=== PATIENT | female | born 1995 | race Hispanic/Latino ===

== ENCOUNTER → 2017-08-27 | Outpatient (REF) | payer OTHER ==
[2017-08-27 15:29] LABS: HEMATOCRIT 38.6 % (36.0-47.0); HEMOGLOBIN 12.5 g/dl (12.0-15.5); MEAN CORPUSCULAR HEMOGLOBIN 26.8 pg (27.0-33.0); MEAN CORPUSCULAR HGB CONC 32.4 g/dl (32.0-36.5); MEAN CORPUSCULAR VOLUME 82.7 fl (80.0-96.0); PLATELET COUNT, AUTOMATED 265 10^3/uL (150-450); RED BLOOD COUNT 4.67 10^6/uL (4.00-5.40); RED CELL DISTRIBUTION WIDTH 13.3 % (11.5-14.5)
[2017-08-27 15:49] LABS: FOLATE 10.9 NG/ML; TOTAL 25(OH) VITAMIN D 14.5 NG/ML (30.0-100.0); VITAMIN B12 LEVEL 420 PG/ML
[2017-08-27 15:54] LABS: ALBUMIN 3.9 GM/DL (3.2-5.2); ALBUMIN/GLOBULIN RATIO 1.08 (1.00-1.93); ALKALINE PHOSPHATASE 91 U/L (45-117); ALT/SGPT 29 U/L (12-78); ANION GAP 6 MEQ/L (8-16); AST/SGOT 18 U/L (7-37); BILIRUBIN,TOTAL 0.4 MG/DL (0.2-1.0); BLOOD UREA NITROGEN 10 MG/DL (7-18); CALCIUM LEVEL 8.9 MG/DL (8.5-10.1); CARBON DIOXIDE LEVEL 28 MEQ/L (21-32); CHLORIDE LEVEL 106 MEQ/L (98-107); CREATININE FOR GFR 0.59 MG/DL (0.55-1.30); FREE T4 1.04 NG/DL (0.76-1.46); GLOMERULAR FILTRATION RATE > 60.0 (>60); GLUCOSE, FASTING 77 MG/DL (70-100); POTASSIUM SERUM 3.8 MEQ/L (3.5-5.1); SODIUM LEVEL 140 MEQ/L (136-145); THYROID STIMULATING HORMONE 0.965 uIU/ML (0.358-3.740); TOTAL PROTEIN 7.5 GM/DL (6.4-8.2)
== END ==
LOC: M SFHCPLAZ 13:58
DX: F32.89 Other specified depressive episodes (principal)
CPT/HCPCS: 82746

== ENCOUNTER 2017-11-12 07:12 | Emergency (ER) | payer OTHER ==
[2017-11-12] MEDS: MORPHINE 4 MG/ML 1ML VIAL/SYRINGE (J2270) IV ×2 (08:51)
[2017-11-12] MEDS: NS 1,000 ML IV ×2 (08:51)
[2017-11-12 08:59] LABS: AMORPHOUS SEDIMENT RFX MODERATE (NEGATIVE); KETONE, URINE AUTO RFX NEGATIVE (NEGATIVE); LEUKOCYTE ESTERASE UR AUTO RFX NEGATIVE (NEGATIVE); MUCUS, URINE RFX SMALL (NEGATIVE); NITRITE, URINE AUTO RFX NEGATIVE (NEGATIVE); RBC, URINE AUTO RFX 2 /HPF (0-3); SPECIFIC GRAVITY UR AUTO RFX 1.018 (1.002-1.035); SQUAM EPITHELIAL CELL UR AURFX 8 /HPF (0-6); WBC, URINE AUTO RFX 0 /HPF (0-3)
[2017-11-12 09:04] LABS: BASO % 0.3 % (0.0-1.0); EOS # 0.1 10^3/uL (0.0-0.50); EOS % 1.2 % (0.0-3.0); HEMATOCRIT 38.1 % (36.0-47.0); HEMOGLOBIN 12.3 g/dl (12.0-15.5); IMMATURE GRANULOCYTE % 0.3 % (0-3.0); LYMPH # 3.1 10^3/uL (1.5-6.5); LYMPH % 40.3 % (24.0-44.0); MEAN CORPUSCULAR HEMOGLOBIN 26.5 pg (27.0-33.0); MEAN CORPUSCULAR HGB CONC 32.3 g/dl (32.0-36.5); MEAN CORPUSCULAR VOLUME 82.1 fl (80.0-96.0); MONO # 0.6 10^3/uL (0.0-0.8); MONO % 7.2 % (0.0-5.0); NEUTROPHILS # 3.9 10^3/uL (1.8-7.7); NEUTROPHILS % 50.7 % (36.0-66.0); PLATELET COUNT, AUTOMATED 233 10^3/uL (150-450); RED BLOOD COUNT 4.64 10^6/uL (4.00-5.40); RED CELL DISTRIBUTION WIDTH 13.2 % (11.5-14.5); WHITE BLOOD COUNT 7.6 10^3/uL (4.0-10.0)
[2017-11-12 09:22] LABS: ALBUMIN 3.7 GM/DL (3.2-5.2); ALBUMIN/GLOBULIN RATIO 0.86 (1.00-1.93); ALKALINE PHOSPHATASE 93 U/L (45-117); ALT/SGPT 37 U/L (12-78); AMYLASE 52 U/L (25-115); ANION GAP 8 MEQ/L (8-16); AST/SGOT 23 U/L (7-37); BILIRUBIN,DIRECT < 0.1 MG/DL (0.0-0.2); BILIRUBIN,TOTAL 0.2 MG/DL (0.2-1.0); BLOOD UREA NITROGEN 11 MG/DL (7-18); CALCIUM LEVEL 9.2 MG/DL (8.5-10.1); CARBON DIOXIDE LEVEL 29 MEQ/L (21-32); CHLORIDE LEVEL 105 MEQ/L (98-107); CREATININE FOR GFR 0.69 MG/DL (0.55-1.30); GLOMERULAR FILTRATION RATE > 60.0 (>60); GLUCOSE, FASTING 99 MG/DL (70-100); LIPASE 155 U/L (73-393); POTASSIUM SERUM 3.9 MEQ/L (3.5-5.1); SODIUM LEVEL 142 MEQ/L (136-145)
== END 2017-11-12 10:12 | disposition home or self-care (01) ==
LOC: M ED 07:12
DX: K80.20 Calculus of gallbladder without cholecystitis without obstruction (principal)
CPT/HCPCS: J2270

== ENCOUNTER 2017-11-29 00:30 | Emergency (ER) | payer OTHER ==
[2017-11-29] MEDS: METHOCARBAMOL 500 MG TAB PO (06:32)
[2017-11-29] MEDS: NORCO, ANEXSIA 5/325MG TABLET (HYDROcodone/ACETAMINOPHEN) PO (06:32)
[2017-11-29] MEDS: IBUPROFEN 800 MG TAB PO (06:32)
== END 2017-11-29 06:37 | disposition home or self-care (01) ==
LOC: M ED 00:30
DX: S39.012A Strain of muscle, fascia and tendon of lower back, initial encounter (principal); X50.0XXA Overexertion from strenuous movement or load, initial encounter; Y92.89 Other specified places as the place of occurrence of the external cause; K21.9 Gastro-esophageal reflux disease without esophagitis; Z79.899 Other long term (current) drug therapy
CPT/HCPCS: 99282

== ENCOUNTER 2017-12-13 10:06 | Day surgery (SDC) | payer OTHER ==
[2017-12-13 10:40] LABS: BEDSIDE GLUCOSE 84 MG/DL (70-105)
[2017-12-13] MEDS: LR 1,000 ML IV (10:44)
[2017-12-13 10:49] LABS: CONTROL LINE UCG INT CTR LINE PRESENT; URINE PREG TEST NEGATIVE (NEGATIVE)
[2017-12-13] MEDS ORDERED: fentaNYL 250 MCG/5 ML INJECTION (J3010) As Ordered (11:20)
[2017-12-13] MEDS ORDERED: MIDAZOLAM INJ 2 MG/2 ML VIAL (J2250) As Ordered (11:21)
[2017-12-13] MEDS ORDERED: ONDANSETRON 4MG/2ML VIAL (J2405) As Ordered (11:22)
[2017-12-13] MEDS ORDERED: ROCURONIUM BROMIDE 50 MG/5 ML VIAL As Ordered (11:22)
[2017-12-13] MEDS ORDERED: PROPOFOL 200 MG/20 ML VIAL As Ordered (11:22)
[2017-12-13] MEDS ORDERED: LIDOCAINE 2% INJ 100 MG/5 ML SDV (FOR ANES.) As Ordered (11:22)
[2017-12-13] MEDS ORDERED: METOCLOPRAMIDE INJ 10MG/2ML VIAL (J2765) As Ordered (11:28)
[2017-12-13] MEDS: AMPICILLIN SOD/SULBACTAM SOD 3 GM in D5W MINI-BAG PLUS 100 ML IV (11:35)
[2017-12-13] MEDS ORDERED: KETOROLAC 60 MG/2 ML VIAL (J1885) As Ordered (12:13)
[2017-12-13] MEDS ORDERED: HYDROmorphone HCL 2 MG/ML 1ML VIAL (J1170) As Ordered (12:13)
[2017-12-13] MEDS ORDERED: NEOSTIGMINE 10 MG/10 ML VIAL (J2710) As Ordered (12:13)
[2017-12-13] MEDS ORDERED: GLYCOPYRROLATE INJ 0.2 MG/ML 2 ML VIAL As Ordered (12:13)
[2017-12-13] MEDS ORDERED: SUGAMMADEX SODIUM 500 MG/5 ML VIAL (BRIDION) As Ordered (12:30)
[2017-12-13] MEDS: BUPIVACAINE HCL 0.25% 30 ML VIAL As Ordered (12:37)
[2017-12-13] MEDS: LIDOCAINE 1% SDV INJ 30 ML VIAL As Ordered (12:37)
[2017-12-13] MEDS ORDERED: PERCOCET 5MG/325MG TAB PO (13:30)
[2017-12-13] MEDS ORDERED: KETOROLAC 30 MG/ML VIAL (J1885) IV (13:30)
[2017-12-13] MEDS ORDERED: fentaNYL 100 MCG/2 ML INJECTION (J3010) IV (13:30)
[2017-12-13] MEDS ORDERED: LR 1,000 ML IV (13:30)
[2017-12-13] MEDS ORDERED: NORCO, ANEXSIA 5/325MG TABLET (HYDROcodone/ACETAMINOPHEN) PO (13:30)
[2017-12-13] MEDS ORDERED: ONDANSETRON 4MG/2ML VIAL (J2405) IV ×2 (13:30)
[2017-12-13] MEDS: NORCO, ANEXSIA 5/325MG TABLET (HYDROcodone/ACETAMINOPHEN) PO (15:09)
== END 2017-12-13 16:15 | disposition home or self-care (01) ==
LOC: M SDC 10:06
DX: K80.18 Calculus of gallbladder with other cholecystitis without obstruction (principal); K21.9 Gastro-esophageal reflux disease without esophagitis; R73.03 Prediabetes; E28.2 Polycystic ovarian syndrome; Z79.899 Other long term (current) drug therapy
CPT/HCPCS: 47562

== ENCOUNTER → 2017-12-20 | Outpatient (REF) | payer OTHER | LOC: M SFHCPLAZ 09:48 | DX: E55.9 Vitamin D deficiency, unspecified (principal) ==

== ENCOUNTER → 2017-12-25 | Outpatient (REF) | payer OTHER ==
[2017-12-25 16:16] LABS: TOTAL 25(OH) VITAMIN D 12.1 NG/ML (30.0-100.0)
== END ==
LOC: M SFHCPLAZ 13:12
DX: E55.9 Vitamin D deficiency, unspecified (principal)

== ENCOUNTER → 2018-07-01 | Outpatient (REF) | payer OTHER ==
[~2018-07-01] MED LIST: HYDR-3713 PO; IBUP80TA PO; METH1TAB40 PO; NORCOTAB PO; OMEP40CA2 PO; ROBA500T PO; ZOFR4TAB14 PO
== END ==
LOC: M SFHCPLAZ 09:19
PROVIDERS: ATTEND Nurse Practitioner Family
DX: E55.9 Vitamin D deficiency, unspecified (principal)
CPT/HCPCS: 36415; 69210; 82306; G0463

== ENCOUNTER → 2018-10-01 | Outpatient (REF) | payer OTHER ==
[~2018-10-01] MED LIST changes: +HYDR-3715 PO; -NORCOTAB PO
[2018-10-01 13:02] LABS: HEMATOCRIT 39.2 % (36.0-47.0); HEMOGLOBIN 12.4 g/dl (12.0-15.5); MEAN CORPUSCULAR HEMOGLOBIN 26.7 pg (27.0-33.0); MEAN CORPUSCULAR HGB CONC 31.6 g/dl (32.0-36.5); MEAN CORPUSCULAR VOLUME 84.5 fl (80.0-96.0); PLATELET COUNT, AUTOMATED 298 10^3/uL (150-450); RED BLOOD COUNT 4.64 10^6/uL (4.00-5.40); WHITE BLOOD COUNT 7.8 10^3/uL (4.0-10.0)
[2018-10-01 13:16] LABS: ALT/SGPT 29 U/L (12-78); BILIRUBIN,TOTAL 0.4 MG/DL (0.2-1.0); BLOOD UREA NITROGEN 8 MG/DL (7-18); CALCIUM LEVEL 9.2 MG/DL (8.5-10.1); CARBON DIOXIDE LEVEL 26 MEQ/L (21-32); CHLORIDE LEVEL 106 MEQ/L (98-107); CREATININE FOR GFR 0.61 MG/DL (0.55-1.30); FERRITIN 12 NG/ML (8-252); GLOMERULAR FILTRATION RATE > 60.0 (>60); GLUCOSE, FASTING 86 MG/DL (70-100); POTASSIUM SERUM 4.2 MEQ/L (3.5-5.1); SODIUM LEVEL 138 MEQ/L (136-145); TOTAL PROTEIN 7.3 GM/DL (6.4-8.2)
[2018-10-01 13:19] LABS: TOTAL 25(OH) VITAMIN D 49.1 NG/ML (30.0-100.0)
[2018-10-01 13:35] LABS: ERYTHROCYTE SEDIMENTATION RATE 25 mm/hr (0-20)
== END ==
LOC: M SFHCPLAZ 10:18
PROVIDERS: ATTEND Nurse Practitioner Family
DX: E55.9 Vitamin D deficiency, unspecified (principal); G43.109 Migraine with aura, not intractable, without status migrainosus
CPT/HCPCS: 36415; 80053; 82306; 82728; 85027; 85652; G0463

== ENCOUNTER 2018-11-01 14:39 | Emergency (ER) | payer OTHER ==
[~2018-11-01] VITALS: Ht 157.5 cm; Wt 64.6 kg
[2018-11-01] MEDS ORDERED: ENDO100S VG (14:51)
[2018-11-01] MEDS ORDERED: PREN29TA4 PO (14:51)
[2018-11-01] MEDS ORDERED: METF500T4 PO (14:51)
[2018-11-01] MEDS ORDERED: PRED5TA PO (14:51)
[2018-11-01 14:59] LABS: BASO % 0.3 % (0.0-1.0); EOS % 0.5 % (0.0-3.0); HEMATOCRIT 37.5 % (36.0-47.0); HEMOGLOBIN 12.2 g/dl (12.0-15.5); LYMPH # 2.5 10^3/uL (1.5-6.5); LYMPH % 33.6 % (24.0-44.0); MEAN CORPUSCULAR HEMOGLOBIN 26.8 pg (27.0-33.0); MEAN CORPUSCULAR HGB CONC 32.5 g/dl (32.0-36.5); MEAN CORPUSCULAR VOLUME 82.2 fl (80.0-96.0); MONO # 0.6 10^3/uL (0.0-0.8); MONO % 7.9 % (0.0-5.0); NEUTROPHILS # 4.3 10^3/uL (1.8-7.7); NEUTROPHILS % 57.4 % (36.0-66.0); PLATELET COUNT, AUTOMATED 273 10^3/uL (150-450); RED BLOOD COUNT 4.56 10^6/uL (4.00-5.40); WHITE BLOOD COUNT 7.6 10^3/uL (4.0-10.0)
[2018-11-01 17:28] VITALS: BP 112/74
[2018-11-01 18:35] LABS: CHLAMYDIA DNA AMPLIFICATION NEGATIVE (NEGATIVE); GC DNA AMPLIFICATION NEGATIVE (NEGATIVE)
--- NOTE | 2018-11-02 07:33 | REP ---
FIRST TRIMESTER ULTRASOUND: HISTORY: Vaginal bleeding. The uterus measures 5.5 cm in transverse x 4.8 cm in AP x 8.4 cm in cephalocaudal dimensions. A gestational sac is present at the endometrial cavity. The gestational sac measures 6 mm corresponding to a gestational age of 5 weeks 2 days. There is no pole. The right ovary measures 3.8 x 2.5 x 2.9 cm. A cyst is present in the right ovary. This may represent a corpus luteal cyst. The cyst measures 2.7 x 2.5 x 1.9 cm. The left ovary measures 2.5 x 1.6 x 2.1 cm. A small amount of free fluid is present in the right adnexa. There is no torsion. IMPRESSION: There is a gestational sac in the endometrial cavity measuring 6 mm corresponding to a gestational age of 5 weeks 2 days. This may represent an early intrauterine or missed . An ectopic cannot be excluded. A repeat examination may be helpful for further evaluation. Electronically Signed by Emiliano Ruiz MD 11/02/2018 08:54 A
== END 2018-11-01 17:29 | disposition home or self-care (01) ==
LOC: M ED 14:39
DX: O34.81 Maternal care for other abnormalities of pelvic organs, first trimester (principal); N83.201 Unspecified ovarian cyst, right side; Z3A.01 Less than 8 weeks gestation of pregnancy; O24.111 Pre-existing type 2 diabetes mellitus, in pregnancy, first trimester; Z87.42 Personal history of other diseases of the female genital tract; Z87.19 Personal history of other diseases of the digestive system; Z86.19 Personal history of other infectious and parasitic diseases; Z79.899 Other long term (current) drug therapy; Z79.52 Long term (current) use of systemic steroids; Z79.84 Long term (current) use of oral hypoglycemic drugs

== ENCOUNTER → 2019-01-19 | Outpatient (REF) | payer OTHER ==
[~2019-01-19] MED LIST changes: +ENDO100S VG; +METF500T4 PO; +PRED5TA PO; +PREN29TA4 PO
[2019-01-19 14:59] LABS: CHLAMYDIA DNA AMPLIFICATION NEGATIVE (NEGATIVE); GC DNA AMPLIFICATION NEGATIVE (NEGATIVE)
== END ==
LOC: M LAB REF 12:43
PROVIDERS: ATTEND Advanced Practice Midwife
DX: Z34.82 Encounter for supervision of other normal pregnancy, second trimester (principal); Z36.89 Encounter for other specified antenatal screening

== ENCOUNTER → 2019-02-13 | Outpatient (CLI) | payer MEDICAID, OTHER, SELFPAY ==
[~2019-02-13] MED LIST changes: +METF-791 PO; -METF500T4 PO
--- NOTE | 2019-02-13 16:06 | REP ---
Obstetric ultrasound for anatomy: There is a single intrauterine gestation in a breech presentation. There is movement and cardiac activity. The heart rate is 147 beats per minute. The placenta is anterior. There is no previa or abruptio. The placenta is grade zero. Subjectively the amniotic fluid volume is normal. The cervix measures 3.6 cm length. Gestational age by today's ultrasound is 19 weeks 6 days/LIANA 07/04/2019. Gestational age by LMP is 20 weeks 4 days/LIANA 06/29/2019. weight is 324 grams/0 pounds, 11 ounces. This is the 26th percentile for 20 weeks 4 days. The following anatomic structures are identified and are unremarkable: Cranium, choroid plexus, cavum septum pellucidum, facial profile, lungs, four-chamber heart, cardiac right and left ventricular outflow tracts, diaphragm, stomach, cord insertion, three-vessel cord, kidneys, bladder and upper lower extremities. Suboptimally demonstrated because of position are the upper lip, cerebellum and spine. A followup study dedicated to these structures might be considered. Electronically Signed by Tenzin Maravilla MD 02/13/2019 03:57 P
== END ==
LOC: M RAD 11:52
PROVIDERS: ATTEND Advanced Practice Midwife
DX: Z34.82 Encounter for supervision of other normal pregnancy, second trimester (principal)

== ENCOUNTER → 2019-03-13 | Outpatient (CLI) | payer MEDICAID, SELFPAY ==
[~2019-03-13] MED LIST changes: -OMEP40CA2 PO; +OMEP40CA97 PO
--- NOTE | 2019-03-13 09:42 | REP ---
OBSTETRIC SONOGRAPHY: HISTORY: Supervision of followup anatomy. face, cerebellum and spine. FINDINGS: Scanning through the gravid uterus demonstrates a viable single intrauterine gestation in oblique, head to the maternal left lie. motion is observed and heart rate is recorded at 139 beats per minute. An anterior grade 1 placenta is seen without evidence of previa or abruption. Amniotic fluid is subjectively normal. Closed cervical length is 4.1 cm viewed transabdominally. No extrauterine abnormality is observed. There has been appropriate interval growth. The following anatomic structures are identified today and felt to be unremarkable: cranium, cavum, cerebellum and posterior fossa, face and profile, lungs, four-chamber heart, diaphragm, left-sided stomach, abdominal wall cord insertion, three-vessel cord, kidneys and bladder, spine, upper and lower extremities. BIOMETRY CHART: BPD 5.5 cm = 22 weeks 6 days HC 21.7 cm = 23 weeks 5 days AC 19.5 cm = 24 weeks 1 day FL 4.3 cm = 24 weeks 0 days HL 4.1 cm = 24 weeks 5 days HC/AC ratio normal 1.11 Cephalic index 0.69 (0.70-0.86) Estimated weight 652 grams, 1 pound 7 ounces, 28 percentile for 24 weeks 4 days. IMPRESSION: Viable single intrauterine gestation at 23-week 6 days by today's composite sonographic criteria. Expected gestational age estimate based on prior sonography is also 23 weeks 6 days. LIANA by prior sonography July 04, 2019. In conjunction with prior sonography, anatomic survey is felt to be complete. Electronically Signed by Shahbaz Beltran MD 03/13/2019 07:34 P
== END ==
LOC: M RAD 08:13
PROVIDERS: ATTEND Obstetrics & Gynecology
DX: Z34.82 Encounter for supervision of other normal pregnancy, second trimester (principal); Z3A.23 23 weeks gestation of pregnancy

== ENCOUNTER → 2019-04-16 | Outpatient (CLI) | payer MEDICAID ==
[2019-04-16 15:22] LABS: HEMATOCRIT 33.7 % (36.0-47.0); HEMOGLOBIN 10.9 g/dl (12.0-15.5); MEAN CORPUSCULAR HEMOGLOBIN 26.8 pg (27.0-33.0); MEAN CORPUSCULAR HGB CONC 32.3 g/dl (32.0-36.5); PLATELET COUNT, AUTOMATED 225 10^3/uL (150-450); RED BLOOD COUNT 4.06 10^6/uL (4.00-5.40); WHITE BLOOD COUNT 7.4 10^3/uL (4.0-10.0)
== END ==
LOC: M LAB 13:44
PROVIDERS: ATTEND Obstetrics & Gynecology
DX: Z34.02 Encounter for supervision of normal first pregnancy, second trimester (principal); Z36.89 Encounter for other specified antenatal screening

== ENCOUNTER → 2019-05-05 | Outpatient (CLI) | payer MEDICAID, OTHER | LOC: M LRY 11:46 | DX: G43.109 Migraine with aura, not intractable, without status migrainosus (principal) ==

== ENCOUNTER 2019-05-22 14:37 | Outpatient (CLI) | payer MEDICAID, OTHER ==
[~2019-05-22] VITALS: Ht 157.5 cm; Wt 66.6 kg
[2019-05-22 15:03] VITALS: BP 98/55
== END 2019-05-22 15:32 | disposition home or self-care (01) ==
LOC: M LDO 14:37
PROVIDERS: ATTEND Obstetrics & Gynecology
DX: O26.893 Other specified pregnancy related conditions, third trimester (principal); R10.2 Pelvic and perineal pain; Z3A.34 34 weeks gestation of pregnancy

== ENCOUNTER → 2019-06-04 | Outpatient (CLI) | payer OTHER | LOC: M PLALAB 08:40 | PROVIDERS: ATTEND Advanced Practice Midwife | DX: Z34.03 Encounter for supervision of normal first pregnancy, third trimester (principal) ==

== ENCOUNTER → 2019-06-04 | Outpatient (CLI) | payer OTHER ==
--- NOTE | 2019-06-05 02:28 | REP ---
Clinical: Anatomical evaluation. Comparison: 03/13/2019. Findings: Examination demonstrates a single live intrauterine in cephalic presentation. motion is identified by technologist. Placenta is noted anterior and grade I I without evidence for placenta previa or abruption. Amniotic fluid volume is normal. Cervix measures 3.0 cm in length and appears closed. No evidence for nuchal cord. Gestational age by LMP 36.4 weeks with LIANA 06/29/2019 . Gestational age by current measurements 34.7 weeks. FHR equals 140 beats per minute. BPD 8.4 cm 33.8 weeks HC 31.7 cm 35.6 weeks AC 31.7 cm 35.6 weeks FL 6.8 cm 34.9 weeks HL 6.0 cm 34.8-week HC/AC ratio 1.00 Estimated weight 2631 grams ( 32nd percentile). Amniotic fluid index: 14.5 cm (7.6 724.7). Impression: Single live intrauterine in cephalic presentation demonstrating appropriate interval growth.
== END ==
LOC: M WHC 10:49
PROVIDERS: ATTEND Advanced Practice Midwife
DX: O26.843 Uterine size-date discrepancy, third trimester (principal)

== ENCOUNTER 2019-06-29 13:13 | Inpatient (IN) | payer OTHER ==
[~2019-06-29] VITALS: Ht 157.5 cm; Wt 69.0 kg
[2019-06-29] VITALS (26 sets, daily range): BP systolic 97–156; BP diastolic 60–103
[2019-06-29] MEDS ORDERED: FIOR1CAP PO (14:12)
[2019-06-29] MEDS ORDERED: OMEP-218 PO (14:12)
[2019-06-29] MEDS ORDERED: LACTATED RINGER'S 1000 ML IV STA (16:12)
[2019-06-29] MEDS ORDERED: LR 1,000 ML IV SCH (16:12)
[2019-06-29] MEDS ORDERED: OXYTOCIN DRIP 30 UNITS in IV 1 EA IV SCH ×2 (16:15→21:58)
--- NOTE | 2019-06-29 16:26 | HPEPDOC ---
Obstetrical History & Physical General Date of Admission 06/29/2019 Primary Care Physician: TONA DAVIS CNM History of Present Illness Merari Frazier is a 24-year-old (G)1 para (P)0-0-0-0 at 40+0 weeks by LMP and confirmed by 6-week ultrasound. Patient initiated care in first trimester. LIANA 06/29/2019. complicated by PCOS and infertility. Patient O+ and GBS negative. Pre- weight was 139# and weight on admission was 152#. Patient presented to labor and delivery complaining of painful uterine contractions starting at 0600. Patient reports positive movement, denies vaginal bleeding and denies leakage of fluid. Reports clear to white vaginal discharge. Chief Complaint: Contractions, term Information Provided By: Patient Age: 24 : 1 Term: 0 Pre-term: 0 Abortions: 0 Livin Care Care: Good Care Dating Final EDC: Jun 29, 2019 Final EDC for Daily Update: Jun 29, 2019 Final EDC by: LMP LMP: Sep 22, 2018 1st Trimester Date: Nov 10, 2018 Weeks + Days: 6.5 EGA at Admission: 40.0 Antepartum Course Diagnos(e)s SIUP at 40.0wk gestation; contractions at term Height (inches): 62 Pre- weight (lbs.): 139 (earliet weight recorded at 16.5wk) Admission Weight (lbs.): 152 Change in Weight (lbs.): 13 Past Medical History Past Obstetrical History : Past Obstetrical History: [employer] History: History of STD (chlamydia), Other (PCOS with infertility) Past Medical History Medical History migraines, vitamin D deficiency Surgical History: Gallbladder Family History Significant Family History: Diabetes Social History Marital Status: Family situation: Spouse/partner home Psychosocial History: No pertinent psych hx * Smoker: former Smoker Alcohol: Denies Drugs: denies (formerly marijuana) Abuse Violence Screening Have you been hit/kicked/slapp: No Have you been sexually assault: No Allergies Coded Allergies: No Known Allergies (Unverified , 11/12/17) Medications Scheduled Omeprazole (Omeprazole) 20 Mg Capsule.dr, 1 CAP PO DAILY for GERD Scheduled PRN Butalb/Acetaminophen/Caffeine (Fioricet 50-300-40 mg Capsule) 1 Each Capsule, 1 CAP PO for HEADACHE Physical Examination Physical Examination GENERAL: Alert and oriented times three. BREAST: . ABDOMEN: Gravid and non-tender to touch. FETUS: Is vertex (VTX) by sterile vaginal examination (SVE), fetus is vertex (VTX) by Garo. HEART RATE: Regular rate and rhythm. LUNGS: Clear to auscultation (CTA). EXTREMITIES: No edema. No clonus. Deep tendon reflexes (DTRs) + 2. Vital Signs/I&O Vital Signs Date Time Temp Pulse Resp B/P (MAP) Pulse Ox O2 Delivery O2 Flow Rate FiO2 06/29/19 13:32 98.0 93 16 112/75 (87) 98.0 Pertinent Laboratoy Data Blood Type: O+ RBC Antibody Screen: Negative HIV: Negative Hepatitis B: Negative Hepatitis C: Negative Rapid Plasma Reagin: Nonreactive Rubella: Immune Chlamydia/Gonorrhea: Negative Group B Streptococcus: Negative Glucose Tolerance Test: 105 Diag/Inter Therapy Aneuploidy screening negative per notes 01/19/19. Anatomy Ultrasound Ultrasound Date: Feb 13, 2019 Placenta Location: Anterior Normal Anatomy: Yes Placenta Previa: No Estimated Weight (grams): 324 (26%) Other Ultrasounds 02/13/1987-[id number] placenta, no previa or abruption; AFV WNL. EFW 324, 26%. 03/13/19-follow up anatomy-EFW 652g, 28%. Steroid Therapy Steroid Therapy: No Vaginal Examination Dilation: 3 cm Effacement: 90% Station: -1 Cervical Consistency: Soft Cervical Position: Middle Presentation: Cephalic presentation Position: Vertex (occiput) Assessment Heart Rate (FHR): 120 Variability: Moderate Accelerations: Positive Decelerations: None Tocometer Contractions: Yes Frequency: irregular, every 3-7 min. Strength: palpated as mild Assessment/Plan Assessment Assessment: SIUP at 40.0wk gestation, category 1 FHR, active labor, GBS negative Plan Patient admitted to labor and delivery. Diet: clears. Group B Streptococcus (GBS) negative. Labs and intravenous (IV) per unit protocol. Counseled on Pitocin and augmentation of labor. Lactated Ringers (LR): Bolus 800 mL, then at 125 mL/hr. Up ad klaudia. Anesthesia consult per patient request. Anticipate normal spontaneous delivery (). C-S as appropriate. TONA DAVIS CNM Jun 29, 2019 16:26
[2019-06-29 16:53] LABS: HEMATOCRIT 31.9 % (36.0-47.0); HEMOGLOBIN 9.6 g/dl (12.0-15.5); MEAN CORPUSCULAR HEMOGLOBIN 23.1 pg (27.0-33.0); MEAN CORPUSCULAR HGB CONC 30.1 g/dl (32.0-36.5); MEAN CORPUSCULAR VOLUME 76.9 fl (80.0-96.0); PLATELET COUNT, AUTOMATED 144 10^3/uL (150-450); RED BLOOD COUNT 4.15 10^6/uL (4.00-5.40); WHITE BLOOD COUNT 8.3 10^3/uL (4.0-10.0)
[2019-06-29] MEDS ORDERED: FENTANYL 2MCG/ML ROPIVACAINE 0.2% IN 0.9% NACL 100ML IVBAG As Ordered ONE (19:27)
[2019-06-29] MEDS ORDERED: EPIDURAL/PCA KEYS XX PRN (20:45)
[2019-06-29] MEDS ORDERED: NALOXONE INJ 0.4 MG/1 ML VIAL (J2310) IV PRN (20:45)
[2019-06-29] MEDS ORDERED: ePHEDrine SULFATE 25 MG/5 ML(5MG/ML) SYRINGE IV PRN (20:45)
[2019-06-29] MEDS ORDERED: REFRIGERATOR IV KEYS XX PRN (20:45)
[2019-06-29] MEDS ORDERED: diphenhydrAMINE INJ 50MG/ML VIAL (J1200) IV PRN (20:45)
[2019-06-29] MEDS ORDERED: FENTANYL/ROPIVACAINE/NACL BAG 100 ML EPIDURAL SCH (20:45)
[2019-06-29] MEDS ORDERED: ONDANSETRON 4MG/2ML VIAL (J2405) IV PRN (20:45)
[2019-06-29] MEDS ORDERED: EPIDURAL COMMENT XX SCH (20:45)
[2019-06-29] MEDS ORDERED: DIBUCAINE 1% OINTMENT 30GM TOP PRN (22:00)
[2019-06-29] MEDS ORDERED: ACETAMINOPHEN TAB 650MG DOSE (2X325MG) PO PRN (22:00)
[2019-06-29] MEDS ORDERED: DOCUSATE SODIUM 100 MG CAP PO PRN (22:00)
[2019-06-29] MEDS ORDERED: IBUPROFEN 600 MG TAB PO PRN (22:00)
[2019-06-29] MEDS ORDERED: IBUPROFEN 800 MG TAB PO PRN (22:00)
[2019-06-29] MEDS ORDERED: ANUSOL HC CREAM 30GM TOP PRN (22:00)
[2019-06-29] MEDS ORDERED: METHYLERGONOVINE MALEATE 0.2 MG TAB PO PRN (22:00)
[2019-06-29] MEDS ORDERED: RHOGAM 300 MCG (1500 IU) INJ (J2790) IM SCH (22:00)
[2019-06-29] MEDS ORDERED: MEASLES,MUMPS,RUBELLA VACCINE INJ (MMR-II) (90707) SC SCH (22:00)
[2019-06-30 00:37] VITALS: BP 133/87
--- NOTE | 2019-06-30 01:33 | DNPDOC ---
[facility] Delivery Note Delivery Note DATE OF DELIVERY: 06/29/2019 at 8 PREDELIVERY DIAGNOSIS: 40-0/7 weeks' gestation and labor. POST DELIVERY DIAGNOSIS: Delivered. PROCEDURE: Spontaneous vaginal delivery. PROVIDER: Danna Lopez, Student Nurse-Straddle Bug Operator with Tona Crowley CNM, HAKEEM ANESTHESIA: epidural. ESTIMATED BLOOD LOSS: 350 mL. FINDINGS: 5 pound 9 ounce (2530g) female infant, Score 8/8. DELIVERY SUMMARY: Patient is a 24-year-old 1 now para 1-0-0-1 who was admitted to labor and delivery for active labor. Her labor was augmented with IV Pitocin. She received an epidural for pain management. The patient progressed to fully dilated at 2058 and pushed to a living female in OA position with restitution to LOT at 2127. The anterior shoulder delivered with ease and the corpus immediately followed. The baby was placed on the maternal abdomen, [id number] active and crying. The cord was clamped times 2 after pulsation ceased and cut by the FOB. A 3-vessel cord was noted. The placenta delivered spontaneously and intact at 2130. Uterine hemostasis was achieved via rapid infusion of IV Pitocin at 999ml/hr for 30 units in 500 ml of NS and fundal massage. The vagina, cervix and perineum were inspected and found to have a small right labial laceration and first degree perineal laceration that were repaired with a 3.[address]-1. She also had a left labial abrasion that was not repaired due to good hemostasis. Mom plans to breastfeed. Both mom and baby in stable condition. All counts of instruments and sponges are correct. They are naming their baby, "Keily." TONA CROWLEY CNM Jun 30, 2019 01:33
[2019-06-30] MEDS: ACETAMINOPHEN 500 MG TAB PO PRN ×3 (02:36→21:58)
[2019-06-30 06:17] VITALS: BP 119/76
[2019-06-30] MEDS: PRENATAL VITAMINS CHEWABLE TABLET PO SCH (07:29)
--- NOTE | 2019-06-30 07:49 | IPNPDOC ---
Progress Note Date of Service: Jun 30, 2019 Day#: 1 Progress Note SUBJECT: She has been ambulating, voiding spontaneously without issue and tolerating regular diet. Breast feeding without issue. OBJECTIVE: VITAL SIGNS: Within normal limits, afebrile. Alert and oriented times three. Breath sounds clear to auscultation. Heart rate: Regular rate and rhythm, no murmurs, rubs or gallops. Abdomen: Fundus firm at U. Soft, NTTP. Minimal lochia. ASSESSMENT: Day 1 PLAN: 1. Continue supportive nursing care and breast feeding support. 2. Anticipate discharge to home tomorrow. VS, I&O, 24H, Fishbone Vital Signs/I&O Vital Signs Date Time Temp Pulse Resp B/P (MAP) Pulse Ox O2 Delivery O2 Flow Rate FiO2 06/30/19 06:17 98.4 85 16 119/76 (90) 98.4 I&O- Last 24 Hours up to 6 AM 06/30/19 06:00 Intake Total 680 ml Output Total 650 ml Balance 30 ml Laboratory Data 24H LABS Laboratory Tests 2 06/29/19 16:30: Nucleated Red Blood Cells % (auto) 0.0, Hepatitis B Surface Antigen (Rapid) NEGATIVE 06/29/19 21:42: Serology Scanned Report Hepatitis B Testing CBC/BMP Laboratory Tests 06/29/19 16:30 TONA DAVIS CNM Jun 30, 2019 07:49
[2019-06-30] MEDS ORDERED: SLF 3 ML SYR IV PRN (08:00)
[2019-06-30] MEDS: SLF 3 ML SYR IV SCH ×2 (14:55→22:00)
[2019-06-30 18:10] VITALS: BP 116/74
[2019-07-01 06:10] VITALS: BP 112/71
[2019-07-01] MEDS ORDERED: INFLUENZA QUADRIVALENT PF VACCINE 0.5ML SYRINGE (90686) IM ONE (09:00)
[2019-07-01] MEDS ORDERED: ADACEL/BOOSTRIX VACCINE (DIPHTH/PERTUSS/ACELL/TETANUS)0.5ML SYR (90715) IM ONE (09:00)
[2019-07-01] MEDS: PRENATAL VITAMINS CHEWABLE TABLET PO SCH (09:51)
== END 2019-07-01 13:30 | disposition home or self-care (01) | DRG 560 ==
LOC: M LDO 13:13 → M LDI 16:08 → M OBS 06-30 00:18
PROVIDERS: ADMIT Advanced Practice Midwife; ATTEND Advanced Practice Midwife
PROC: 10E0XZZ Delivery of Products of Conception, External Approach (ICD-10-PCS; principal; 2019-06-29)
PROC: 0HQ9XZZ Repair Perineum Skin, External Approach (ICD-10-PCS; 2019-06-29)
DX: O70.0 First degree perineal laceration during delivery (principal); Z37.0 Single live birth; Z3A.40 40 weeks gestation of pregnancy

== ENCOUNTER 2019-07-09 11:44 | Emergency (ER) | payer OTHER ==
[~2019-07-09] VITALS: Ht 157.5 cm; Wt 62.0 kg
[~2019-07-09 11:44] MED LIST changes: +FIOR1CAP PO; +OMEP-218 PO
[2019-07-09] MEDS ORDERED: IBUP80TA PO (14:51)
[2019-07-09 14:55] VITALS: BP 146/91
[2019-07-09] MEDS ORDERED: IBUPROFEN 800 MG TAB PO ONE (15:00)
== END 2019-07-09 15:01 | disposition home or self-care (01) ==
LOC: M ED 11:44
DX: M62.830 Muscle spasm of back (principal)

== ENCOUNTER → 2020-11-01 | Outpatient (REF) | payer OTHER ==
[~2020-11-01] MED LIST changes: -METF-791 PO; +METF-838 PO; +METH-1164 PO; -METH1TAB40 PO
[2020-11-01 11:44] LABS: PROGESTERONE 10.09 NG/ML
== END ==
LOC: M PLALAB 08:28
PROVIDERS: ATTEND Advanced Practice Midwife
DX: O36.80X0 Pregnancy with inconclusive fetal viability, not applicable or unspecified (principal)

== ENCOUNTER → 2020-11-03 | Outpatient (REF) | payer OTHER | LOC: M PLALAB 09:49 | PROVIDERS: ATTEND Advanced Practice Midwife | DX: O36.80X0 Pregnancy with inconclusive fetal viability, not applicable or unspecified (principal) ==

== ENCOUNTER → 2020-11-23 | Outpatient (CLI) | payer OTHER ==
[~2020-11-23] MED LIST changes: +OMEP40CA4 PO; -OMEP40CA97 PO
[2020-11-23 15:24] LABS: HEMATOCRIT 40.8 % (36.0-47.0); HEMOGLOBIN 13.2 g/dl (12.0-15.5); MEAN CORPUSCULAR HEMOGLOBIN 26.8 pg (27.0-33.0); MEAN CORPUSCULAR HGB CONC 32.4 g/dl (32.0-36.5); MEAN CORPUSCULAR VOLUME 82.9 fl (80.0-96.0); PLATELET COUNT, AUTOMATED 179 10^3/uL (150-450); RED BLOOD COUNT 4.92 10^6/uL (4.00-5.40); WHITE BLOOD COUNT 6.7 10^3/uL (4.0-10.0)
[2020-11-23 16:37] LABS: HEPATITIS C VIRUS ABY INDEX < 0.0 INDEX (<0.8); HIV 1&2 SCREEN CENTAUR NEGATIVE (NEGATIVE)
[2020-11-23 19:36] LABS: GC DNA AMPLIFICATION NEGATIVE (NEGATIVE)
== END ==
LOC: M PLALAB 13:29
PROVIDERS: ATTEND Advanced Practice Midwife
DX: Z36.89 Encounter for other specified antenatal screening (principal); Z3A.00 Weeks of gestation of pregnancy not specified

== ENCOUNTER → 2020-12-09 | Outpatient (CLI) | payer OTHER | LOC: M PLALAB 14:43 | PROVIDERS: ATTEND Advanced Practice Midwife | DX: Z34.81 Encounter for supervision of other normal pregnancy, first trimester (principal) ==

== ENCOUNTER → 2021-01-06 | Outpatient (CLI) | payer OTHER | LOC: M WHC 11:06 | PROVIDERS: ATTEND Obstetrics & Gynecology | DX: Z36.89 Encounter for other specified antenatal screening (principal); Z3A.16 16 weeks gestation of pregnancy ==

== ENCOUNTER → 2021-02-01 | Outpatient (CLI) | payer OTHER ==
--- NOTE | 2021-02-01 09:20 | REP ---
INDICATION: ANATOMY. COMPARISON: None. TECHNIQUE: Real-time sonographic evaluation of the gravid uterus performed. FINDINGS: Estimated gestational age is20 weeks 3 days, EDC 06/18/2021. Today's measurements indicate appropriate growth. Presentation: Transverse Placenta anterior to the right, grade 1, without evidence of placenta previa. heart rate is recorded at 142 beats per minute. Amniotic fluid is subjectively normal. Closed cervical length is measured at 3.5 cm. Biometry chart: BPD: 47 mm, 20 weeks 2 days, 45th percentile. HC: 183 mm, 20 weeks 5 days, 57th percentile AC: 153 mm, 20 weeks 4 days, 52nd percentile Femur length: 33 mm, 20 weeks 1 days, 43rd percentile HC to AC ratio: 1.20, normal range 1.06-1.24. Estimated weight: 349g, 42nd percentile. anatomy: Cranium: Grossly normal Lateral Ventricles/Choroid Plexus: Grossly normal Posterior Fossa/Cerebellum: Grossly normal Nose/lips/profile: Not well seen due to position Four chamber heart: Not well seen due to position Right ventricular outflow tract: Grossly normal Left ventricular outflow tract: Grossly normal Left-sided stomach: Grossly normal Kidneys: Grossly normal Bladder: Grossly normal Cord Insertion: Grossly normal 3 vessel cord: Grossly normal Spine: Grossly normal IMPRESSION: Viable single intrauterine gestation as above. <Electronically signed by Tenzin Griffin > 02/01/21 [id number]
== END ==
LOC: M WHC 06:53
PROVIDERS: ATTEND Obstetrics & Gynecology
DX: Z36.89 Encounter for other specified antenatal screening (principal); Z3A.16 16 weeks gestation of pregnancy

== ENCOUNTER → 2021-02-20 | Outpatient (CLI) | payer OTHER ==
--- NOTE | 2021-02-20 09:45 | REP ---
INDICATION: F/U ANATOMY COMPARISON: 02/01/2021 TECHNIQUE: Transabdominal obstetrical ultrasound with color Doppler evaluation. FINDINGS: Examination demonstrates a single live intrauterine in cephalic presentation. motion is identified by technologist. Placenta is noted fundal and grade 1 without evidence for placenta previa or abruption. Amniotic fluid volume is normal. Cervix measures 3.1 cm in length and appears closed.. Selected gestational age: 23 weeks 1 day with LIANA 06/18/2021. Gestational age by current measurements 23 weeks 1 day with LIANA 06/18/2021. FHR equals 135 beats per minute. Estimated weight 558 grams (38thpercentile). Anatomical assessment demonstrates normal structures including heart and facial features/facial profile. IMPRESSION: Single live intrauterine in cephalic presentation demonstrating appropriate interval growth. In conjunction with prior examination anatomical assessment is complete and normal. <Electronically signed by Brennen Mendiola > 02/20/21 0102
== END ==
LOC: M WHC 07:49
PROVIDERS: ATTEND Obstetrics & Gynecology
DX: Z36.89 Encounter for other specified antenatal screening (principal); Z3A.20 20 weeks gestation of pregnancy

== ENCOUNTER → 2021-04-10 | Outpatient (CLI) | payer OTHER ==
[2021-04-10 17:32] LABS: HEMATOCRIT 34.9 % (36.0-47.0); MEAN CORPUSCULAR HEMOGLOBIN 26.3 pg (27.0-33.0); MEAN CORPUSCULAR HGB CONC 31.5 g/dl (32.0-36.5); MEAN CORPUSCULAR VOLUME 83.3 fl (80.0-96.0); PLATELET COUNT, AUTOMATED 237 10^3/uL (150-450); RED BLOOD COUNT 4.19 10^6/uL (4.00-5.40); WHITE BLOOD COUNT 6.7 10^3/uL (4.0-10.0)
[2021-04-10 20:08] LABS: GC DNA AMPLIFICATION NEGATIVE (NEGATIVE)
== END ==
LOC: M PLALAB 13:39
PROVIDERS: ATTEND Obstetrics & Gynecology
DX: Z34.83 Encounter for supervision of other normal pregnancy, third trimester (principal)

== ENCOUNTER → 2021-05-31 | Outpatient (REF) | payer OTHER | LOC: M SFHCWAGY 17:57 | PROVIDERS: ATTEND Obstetrics & Gynecology | DX: Z36.89 Encounter for other specified antenatal screening (principal); Z3A.37 37 weeks gestation of pregnancy ==